=== PATIENT | male | born 1985 | race Hispanic/Latino ===

== ENCOUNTER 2021-06-27 22:15 | Inpatient (IN) | payer OTHER, SELFPAY ==
[2021-06-27] MEDS ORDERED: Ibuprofen 200 MG TAB ONE (22:28)
[2021-06-27] MEDS ORDERED: Morphine 4 MG/ML VIAL ONE (23:07)
[2021-06-27 23:08] LABS: #Eosinphils 0.1 thou/uL (0.0-0.7); #Lymphocytes 1.9 thou/uL (1.20-3.40); #Monocytes 0.4 thou/uL (0.11-0.59); #Neutrophils 8.2 thou/uL (1.40-6.50); %Basophils 0.3 % (0.0-1.0); %Eosinophils 0.9 % (0.0-10.0); %Lymphocytes 18.2 % (21.0-51.0); %Neutrophils 76.5 % (42.0-75.0); Hemoglobin 13.7 g/dL (14.0-18.0); Mean Corpuscular HGB CONC 32.3 g/dL (32.0-36.0); Mean Corpuscular Hemoglobin 29.8 pg (27.0-31.0); Mean Corpuscular Volume 92.2 fL (78.0-98.0); Mean Platelet Volume 8.1 fL (7.4-10.4); Platelet Count 192 thou/uL (130-400); Red Blood Cell (RBC) Count 4.58 mill/uL (4.70-6.10); White Blood Cell (WBC) Count 10.7 thou/uL (4.8-10.8)
[2021-06-27 23:26] LABS: Alcohol 200 mg/dL (Less than 10); CK (CPK) 429 U/L (30-200)
[2021-06-28] LABS: Magnesium 1.9 mg/dL (1.6-2.6); Phosphorus 3.4 mg/dL (2.3-4.7)
[2021-06-28 00:01] LABS: ALT (SGPT) 133 U/L (8-55); AST (SGOT) 81 U/L (5-34); Albumin 4.2 g/dL (3.5-5.0); Alkaline Phosphatase 102 U/L (40-110); Anion Gap 15 mmol/L (10-20); BUN (Urea Nitrogen) 8 mg/dL (8.9-20.6); Bilirubin, Total 0.9 mg/dL (0.2-1.2); Calc. Creatinine Clearance 0 mL/min (70-130); Calcium 8.4 mg/dL (7.8-10.44); Carbon Dioxide 21 mmol/L (22-29); Chloride 108 mmol/L (98-107); Globulin 3.6 g/dL (2.4-3.5); Glucose 117 mg/dL (70-105); Protein, Total 7.8 g/dL (6.0-8.3); Sodium 140 mmol/L (136-145)
[2021-06-28] MEDS ORDERED: Morphine 4 MG/ML VIAL SLOW IVP PRN (00:21)
[2021-06-28] MEDS ORDERED: Dextrose 5% in Water 1,000 ML IV PRN (00:21)
[2021-06-28] MEDS ORDERED: hydrALAZINE 20 MG/ML VIAL SLOW IVP PRN (00:21)
[2021-06-28] MEDS ORDERED: Dextrose 50% Abboject 50 ML SYRINGE SLOW IVP PRN (00:21)
[2021-06-28] MEDS ORDERED: Ondansetron PF 4 MG/2 ML Vial IVP PRN (00:21)
[2021-06-28] MEDS ORDERED: traMADol HCl 50 MG TAB PO PRN (00:28)
[2021-06-28] MEDS ORDERED: Sodium Chloride 0.9% 1,000 ML IV SCH (00:30)
[2021-06-28 01:48] VITALS: BMI 39.6
[2021-06-28] MEDS ORDERED: Sodium Phosphate 15 MMOL in Sodium Chloride 0.9% 250 ML 250 ML IVPB SCH (02:30)
[2021-06-28] MEDS: Acetaminophen 500 MG TAB PO SCH ×4 (02:39→21:56)
[2021-06-28 03:04] LABS: SARS-CoV-2 NAA Rapid Test Not Detected (NotDetected)
[2021-06-28] MEDS: Oxazepam 10 MG CAP PO SCH ×3 (05:26→21:56)
[2021-06-28] MEDS: Ibuprofen 200 MG TAB PO SCH ×3 (05:26→21:57)
[2021-06-28] MEDS: traMADol HCl 50 MG TAB PO PRN (05:26)
[2021-06-28] MEDS ORDERED: CEFAZOLIN 2 GM in Sodium Chloride 0.9% 100 ML IVPB SCH (08:30)
[2021-06-28] MEDS: Gabapentin 300 MG CAP PO SCH ×3 (09:16→21:57)
[2021-06-28] MEDS: Famotidine 20 MG TAB PO SCH ×2 (09:16→21:57)
[2021-06-28] MEDS: Folic Acid 1 MG TAB PO SCH (09:16)
[2021-06-28] MEDS: Multivitamin W/ Minerals 1 TAB PO SCH (09:16)
[2021-06-28] MEDS: Thiamine 100 MG TAB PO SCH (09:16)
[2021-06-28] MEDS: Senokot S 8.6-50 MG TAB PO SCH ×2 (09:16→22:44)
[2021-06-28] MEDS: Polyethylene Glycol 3350 17 GM Packet PO SCH (09:16)
[2021-06-28] MEDS ORDERED: Sodium Chloride 0.9% 100 ML ONE (12:40)
[2021-06-28] MEDS ORDERED: CEFAZOLIN 2 GM VIAL ONE (12:40)
[2021-06-28] MEDS ORDERED: fentaNYL Citrate/PF 100 MCG/2 ML SYRINGE ONE (14:20)
[2021-06-28] MEDS ORDERED: HYDROmorphone 0.5 MG/0.5 ML SYRINGE ONE (14:20)
[2021-06-28] MEDS ORDERED: PROPOFOL 200 MG/20 ML VIAL ONE (14:31)
[2021-06-28] MEDS ORDERED: Dexamethasone 20 MG/5 ML VIAL ONE (14:31)
[2021-06-28] MEDS ORDERED: Ondansetron PF 4 MG/2 ML Vial ONE (14:31)
[2021-06-28] MEDS ORDERED: Ketorolac Tromethamine 30 MG/ML VIAL ONE (14:31)
[2021-06-28] MEDS ORDERED: Lidocaine 1% PF 5 ML VIAL ONE (14:31)
[2021-06-28] MEDS ORDERED: Promethazine HCl 25 MG/ML VIAL IM PRN (18:32)
[2021-06-28] MEDS ORDERED: PACU-Morphine 4MG/ML VIAL SLOW IVP PRN (18:32)
[2021-06-28] MEDS ORDERED: Ondansetron HCl/PF 4 MG/2 ML Vial IVP PRN (18:32)
[2021-06-28] MEDS ORDERED: Promethazine HCl 25 MG/ML VIAL IVPB PRN (18:32)
[2021-06-28] MEDS ORDERED: Fentanyl 100 MCG/2 ML VIAL ONE (18:54)
[2021-06-28] MEDS: Cyclobenzaprine 10 MG TAB PO PRN (21:56)
[2021-06-28] MEDS: ceFAZolin (BATCH) 2 GM in Premix Bag 1 BAG IVPB SCH (21:58)
[2021-06-29] MEDS: Acetaminophen 500 MG TAB PO SCH ×4 (04:01→21:33)
[2021-06-29] MEDS: ceFAZolin (BATCH) 2 GM in Premix Bag 1 BAG IVPB SCH (05:37)
[2021-06-29] MEDS: Oxazepam 10 MG CAP PO SCH ×3 (05:38→21:34)
[2021-06-29] MEDS: Ibuprofen 200 MG TAB PO SCH ×3 (05:38→21:34)
[2021-06-29 06:38] LABS: Anion Gap 11 mmol/L (10-20); BUN (Urea Nitrogen) 13 mg/dL (8.9-20.6); Calc. Creatinine Clearance 194 mL/min (70-130); Calcium 7.8 mg/dL (7.8-10.44); Carbon Dioxide 26 mmol/L (22-29); Chloride 101 mmol/L (98-107); Glucose 116 mg/dL (70-105); Magnesium 1.9 mg/dL (1.6-2.6); Phosphorus 3.3 mg/dL (2.3-4.7); Potassium 3.9 mmol/L (3.5-5.1); Sodium 134 mmol/L (136-145)
[2021-06-29 06:42] LABS: #Lymphocytes 1.1 thou/uL (1.20-3.40); #Monocytes 0.9 thou/uL (0.11-0.59); #Neutrophils 8.1 thou/uL (1.40-6.50); %Basophils 0.2 % (0.0-1.0); %Eosinophils 0.1 % (0.0-10.0); %Lymphocytes 11.2 % (21.0-51.0); %Neutrophils 79.5 % (42.0-75.0); Hemoglobin 10.5 g/dL (14.0-18.0); Mean Corpuscular HGB CONC 33.3 g/dL (32.0-36.0); Mean Corpuscular Hemoglobin 31.2 pg (27.0-31.0); Mean Corpuscular Volume 93.8 fL (78.0-98.0); Mean Platelet Volume 8.4 fL (7.4-10.4); Platelet Count 161 thou/uL (130-400); RBC Distribution Width 13.1 % (11.5-14.5); Red Blood Cell (RBC) Count 3.36 mill/uL (4.70-6.10); White Blood Cell (WBC) Count 10.2 thou/uL (4.8-10.8)
[2021-06-29] MEDS: Senokot S 8.6-50 MG TAB PO SCH ×2 (09:54→21:34)
[2021-06-29] MEDS: Thiamine 100 MG TAB PO SCH (09:55)
[2021-06-29] MEDS: Famotidine 20 MG TAB PO SCH ×2 (09:55→21:33)
[2021-06-29] MEDS: Folic Acid 1 MG TAB PO SCH (09:55)
[2021-06-29] MEDS: Multivitamin W/ Minerals 1 TAB PO SCH (09:56)
[2021-06-29] MEDS: Gabapentin 300 MG CAP PO SCH ×3 (09:56→21:34)
[2021-06-29] MEDS: Polyethylene Glycol 3350 17 GM Packet PO SCH (09:56)
[2021-06-29] MEDS: traMADol HCl 50 MG TAB PO PRN (11:18)
[2021-06-29] MEDS: CEFAZOLIN 2 GM in Sodium Chloride 0.9% 100 ML IVPB SCH ×2 (13:49→21:34)
[2021-06-29] MEDS: Enoxaparin Sodium 40 MG/0.4 ML SYRINGE SC SCH (21:33)
[2021-06-29] MEDS: Cyclobenzaprine 10 MG TAB PO PRN (21:45)
[2021-06-30] MEDS: Acetaminophen 500 MG TAB PO SCH ×4 (03:18→20:57)
[2021-06-30] MEDS: traMADol HCl 50 MG TAB PO PRN (03:18)
[2021-06-30] MEDS: CEFAZOLIN 2 GM in Sodium Chloride 0.9% 100 ML IVPB SCH (05:37)
[2021-06-30] MEDS: Ibuprofen 200 MG TAB PO SCH ×3 (05:37→20:59)
[2021-06-30] MEDS: Oxazepam 10 MG CAP PO SCH ×3 (05:38→21:00)
[2021-06-30 06:02] LABS: #Lymphocytes 1.9 thou/uL (1.20-3.40); #Monocytes 0.7 thou/uL (0.11-0.59); #Neutrophils 4.3 thou/uL (1.40-6.50); %Basophils 0.5 % (0.0-1.0); %Eosinophils 0.4 % (0.0-10.0); %Lymphocytes 27.3 % (21.0-51.0); %Monocytes 10.5 % (0.0-10.0); %Neutrophils 61.3 % (42.0-75.0); Hemoglobin 9.6 g/dL (14.0-18.0); Mean Corpuscular HGB CONC 31.8 g/dL (32.0-36.0); Mean Corpuscular Hemoglobin 29.8 pg (27.0-31.0); Mean Corpuscular Volume 93.5 fL (78.0-98.0); Mean Platelet Volume 8.5 fL (7.4-10.4); Platelet Count 153 thou/uL (130-400); RBC Distribution Width 13.2 % (11.5-14.5); Red Blood Cell (RBC) Count 3.22 mill/uL (4.70-6.10)
[2021-06-30] MEDS: Thiamine 100 MG TAB PO SCH (09:39)
[2021-06-30] MEDS: Ferrous Sulfate 325 MG TAB PO SCH (09:39)
[2021-06-30] MEDS: Senokot S 8.6-50 MG TAB PO SCH ×2 (09:39→20:56)
[2021-06-30] MEDS: Gabapentin 300 MG CAP PO SCH ×3 (09:39→20:56)
[2021-06-30] MEDS: Famotidine 20 MG TAB PO SCH ×2 (09:39→20:56)
[2021-06-30] MEDS: Multivitamin W/ Minerals 1 TAB PO SCH (09:39)
[2021-06-30] MEDS: Ascorbic Acid 500 mg Chewable Tablet PO SCH (09:39)
[2021-06-30] MEDS: Polyethylene Glycol 3350 17 GM Packet PO SCH (09:39)
[2021-06-30] MEDS: Folic Acid 1 MG TAB PO SCH (09:39)
[2021-06-30] MEDS: Cyclobenzaprine 10 MG TAB PO PRN (16:36)
[2021-06-30] MEDS: Enoxaparin Sodium 40 MG/0.4 ML SYRINGE SC SCH (20:58)
[2021-07-01] MEDS: Cyclobenzaprine 10 MG TAB PO PRN (00:50)
[2021-07-01] MEDS: Acetaminophen 500 MG TAB PO SCH ×4 (04:10→20:46)
[2021-07-01 05:37] LABS: #Eosinphils 0.1 thou/uL (0.0-0.7); #Lymphocytes 1.5 thou/uL (1.20-3.40); #Monocytes 0.7 thou/uL (0.11-0.59); #Neutrophils 5.4 thou/uL (1.40-6.50); %Basophils 0.6 % (0.0-1.0); %Lymphocytes 19.6 % (21.0-51.0); %Monocytes 8.6 % (0.0-10.0); %Neutrophils 70.2 % (42.0-75.0); Hemoglobin 9.8 g/dL (14.0-18.0); Mean Corpuscular HGB CONC 32.6 g/dL (32.0-36.0); Mean Corpuscular Hemoglobin 30.4 pg (27.0-31.0); Mean Corpuscular Volume 93.2 fL (78.0-98.0); Mean Platelet Volume 8.4 fL (7.4-10.4); Platelet Count 153 thou/uL (130-400); RBC Distribution Width 13.1 % (11.5-14.5); Red Blood Cell (RBC) Count 3.22 mill/uL (4.70-6.10); White Blood Cell (WBC) Count 7.7 thou/uL (4.8-10.8)
[2021-07-01] MEDS: Oxazepam 10 MG CAP PO SCH ×3 (05:41→20:50)
[2021-07-01] MEDS: Ibuprofen 200 MG TAB PO SCH ×3 (05:41→20:48)
[2021-07-01] MEDS: Multivitamin W/ Minerals 1 TAB PO SCH (08:47)
[2021-07-01] MEDS: Gabapentin 300 MG CAP PO SCH ×3 (08:47→20:47)
[2021-07-01] MEDS: Ferrous Sulfate 325 MG TAB PO SCH (08:47)
[2021-07-01] MEDS: Folic Acid 1 MG TAB PO SCH (08:47)
[2021-07-01] MEDS: Thiamine 100 MG TAB PO SCH (08:47)
[2021-07-01] MEDS: Ascorbic Acid 500 mg Chewable Tablet PO SCH (08:47)
[2021-07-01] MEDS: Famotidine 20 MG TAB PO SCH ×2 (08:47→20:47)
[2021-07-01] MEDS: Polyethylene Glycol 3350 17 GM Packet PO SCH (08:48)
[2021-07-01] MEDS: Senokot S 8.6-50 MG TAB PO SCH ×2 (08:48→20:46)
[2021-07-01] MEDS: Enoxaparin Sodium 40 MG/0.4 ML SYRINGE SC SCH (20:46)
[2021-07-02] MEDS: Acetaminophen 500 MG TAB PO SCH ×3 (03:04→14:10)
[2021-07-02] MEDS: Oxazepam 10 MG CAP PO SCH ×2 (05:21→14:09)
[2021-07-02] MEDS: Ibuprofen 200 MG TAB PO SCH ×2 (05:21→14:09)
[2021-07-02] MEDS: Polyethylene Glycol 3350 17 GM Packet PO SCH (09:00)
[2021-07-02] MEDS: Thiamine 100 MG TAB PO SCH (09:01)
[2021-07-02] MEDS: Multivitamin W/ Minerals 1 TAB PO SCH (09:01)
[2021-07-02] MEDS: Famotidine 20 MG TAB PO SCH (09:01)
[2021-07-02] MEDS: Folic Acid 1 MG TAB PO SCH (09:01)
[2021-07-02] MEDS: Ferrous Sulfate 325 MG TAB PO SCH (09:01)
[2021-07-02] MEDS: Ascorbic Acid 500 mg Chewable Tablet PO SCH (09:01)
[2021-07-02] MEDS: Senokot S 8.6-50 MG TAB PO SCH (09:01)
[2021-07-02] MEDS: Gabapentin 300 MG CAP PO SCH ×2 (09:02→14:10)
[2021-07-02] MEDS ORDERED: Magnesium Citrate 300 ML BOT PO SCH (14:45)
[2021-07-02 19:57] VITALS: BP 112/69; TEMP 98.9
== END 2021-07-02 20:00 | disposition home or self-care (01) | DRG 493 ==
LOC: ERS 22:15 → SURG A 06-28 00:21 → EDBD 06-28 00:21 → OBSVTOIN 06-30 11:29
PROVIDERS: ADMIT Surgery; ATTEND Surgery
PROC: 0QSH04Z Reposition Left Tibia with Internal Fixation Device, Open Approach (ICD-10-PCS; principal; 2021-06-28)
DX: S82.142A Displaced bicondylar fracture of left tibia, initial encounter for closed fracture (principal); D62 Acute posthemorrhagic anemia; Z20.822 Contact with and (suspected) exposure to COVID-19; Z60.2 Problems related to living alone; F10.129 Alcohol abuse with intoxication, unspecified; Y90.7 Blood alcohol level of 200-239 mg/100 ml; V17.4XXA Pedal cycle driver injured in collision with fixed or stationary object in traffic accident, initial encounter; Y92.488 Other paved roadways as the place of occurrence of the external cause
CPT/HCPCS: 27752; 36415; 71045; 76000; 80048; 80053; 80307; 82550; 83735; 83880; 84100; 85025; 86850; 86900; 86901; 96365; 96366; 96372; 96374; 96375; 96376; C1713; G0378; G0390; J0690; J1100; J1170; J1650; J1885; J2270; J2405; J2704; J3010; J3490; J7050; U0002